=== PATIENT | male | born 1990 | race Caucasian/White ===

== ENCOUNTER 2017-04-22 20:43 | Emergency (ER) | payer MEDICARE ==
[~2017-04-22] VITALS: Ht 180.3 cm; Wt 90.9 kg
[2017-04-22] MEDS ORDERED: LORazepam 1MG TABLET ONE (21:20)
[2017-04-22 21:22] LABS: HEMATOCRIT 46.2 % (39.2-51.8); HEMOGLOBIN 15.8 g/dL (13.7-18.0); WHITE BLOOD COUNT 11.6 x10^3/uL (3.4-10)
[2017-04-22] MEDS ORDERED: SODIUM CHLORIDE FLUSH 10ML SYR IVF ONE (21:30)
[2017-04-22] MEDS ORDERED: LORazepam 1MG TABLET PO ONE (21:30)
[2017-04-22] MEDS ORDERED: PHENYTOIN SODIUM 1,000 MG in SODIUM CHLORIDE 0.9% 100 ML IVPB ONE (21:30)
[2017-04-22] MEDS ORDERED: FILTER 0.22 MICRON IV ONE (21:30)
[2017-04-22 21:31] LABS: BLOOD UREA NITROGEN 9 mg/dL (7-18)
[2017-04-22 21:35] LABS: ASPARTATE AMINO TRANSFERASE 23 U/L (15-37)
[2017-04-22] MEDS ORDERED: PHENYTOIN 125 MG/5 ML ORAL SUSP PO ONE (23:30)
[2017-04-22 23:50] VITALS: BP 136/84
== END 2017-04-23 00:04 | disposition home or self-care (01) ==
LOC: ED 21:44
DX: G40.319 Generalized idiopathic epilepsy and epileptic syndromes, intractable, without status epilepticus (principal); Z72.89 Other problems related to lifestyle
CPT/HCPCS: 36415; 80053; 80307; 85025; 96365; 96366; 99285; J1165

== ENCOUNTER 2017-04-26 22:05 | Emergency (ER) | payer MEDICARE, MEDICAID ==
[~2017-04-26] VITALS: Ht 180.3 cm; Wt 99.8 kg
[2017-04-26 22:30] VITALS: BP 107/66
== END 2017-04-26 22:57 | disposition home or self-care (01) ==
LOC: ED 22:37
DX: R07.89 Other chest pain (principal); F17.200 Nicotine dependence, unspecified, uncomplicated; Z88.6 Allergy status to analgesic agent; Z88.0 Allergy status to penicillin; Z88.8 Allergy status to other drugs, medicaments and biological substances
CPT/HCPCS: 99284

== ENCOUNTER 2017-04-29 17:17 | Emergency (ER) | payer MEDICARE, MEDICAID ==
[~2017-04-29] VITALS: Ht 175.3 cm; Wt 81.0 kg
[2017-04-29 17:23] VITALS: BP 107/74
[2017-04-29] MEDS ORDERED: IBUP-1223 PO (17:28)
[2017-04-29] MEDS ORDERED: PHEN100C PO (17:28)
== END 2017-04-29 17:45 | disposition left against medical advice (07) ==
LOC: ED 17:42
DX: R56.9 Unspecified convulsions (principal); F17.200 Nicotine dependence, unspecified, uncomplicated
CPT/HCPCS: 99283

== ENCOUNTER 2017-05-15 20:29 | Emergency (ER) | payer MEDICARE, MEDICAID ==
[~2017-05-15] VITALS: Ht 182.9 cm; Wt 78.1 kg
[~2017-05-15 20:29] MED LIST: IBUP-1223 PO; PHEN100C PO
[2017-05-15] MEDS ORDERED: ONDANSETRON ODT 4 MG PO ONE (21:00)
[2017-05-15 21:52] VITALS: BP 118/80
== END 2017-05-15 21:54 | disposition home or self-care (01) ==
LOC: ED 21:46
DX: R11.2 Nausea with vomiting, unspecified (principal); F17.200 Nicotine dependence, unspecified, uncomplicated; Z88.0 Allergy status to penicillin; Z88.6 Allergy status to analgesic agent; Z88.8 Allergy status to other drugs, medicaments and biological substances
CPT/HCPCS: 74022; 93005; 99284

== ENCOUNTER 2017-05-16 17:16 | Emergency (ER) | payer MEDICARE, MEDICAID ==
[~2017-05-16] VITALS: Ht 182.9 cm; Wt 77.4 kg
[2017-05-16 17:18] VITALS: BP 125/82
[2017-05-16] MEDS ORDERED: LORazepam 1MG TABLET PO ONE (18:00)
== END 2017-05-16 20:06 | disposition left against medical advice (07) ==
LOC: ED 20:00
DX: F32.9 Major depressive disorder, single episode, unspecified (principal); F43.10 Post-traumatic stress disorder, unspecified; Z80.0 Family history of malignant neoplasm of digestive organs; Z88.1 Allergy status to other antibiotic agents; Z88.6 Allergy status to analgesic agent; Z88.8 Allergy status to other drugs, medicaments and biological substances
CPT/HCPCS: 99284

== ENCOUNTER 2017-05-23 01:45 | Emergency (ER) | payer MEDICARE, MEDICAID ==
[~2017-05-23] VITALS: Ht 175.3 cm; Wt 77.6 kg
[2017-05-23 01:47] VITALS: BP 111/75
== END 2017-05-23 02:35 | disposition home or self-care (01) ==
LOC: ED 02:30
DX: T50.995A Adverse effect of other drugs, medicaments and biological substances, initial encounter (principal); Y92.89 Other specified places as the place of occurrence of the external cause
CPT/HCPCS: 93005; 99283

== ENCOUNTER 2017-06-01 04:02 | Emergency (ER) | payer MEDICARE, MEDICAID ==
[~2017-06-01] VITALS: Ht 182.9 cm; Wt 77.0 kg
[2017-06-01 05:29] LABS: HEMOGLOBIN 16.4 g/dL (13.7-18.0); WHITE BLOOD COUNT 8.8 x10^3/uL (3.4-10)
[2017-06-01 05:38] LABS: BLOOD UREA NITROGEN 11 mg/dL (7-18)
[2017-06-01 06:32] VITALS: BP 132/84
== END 2017-06-01 06:43 | disposition home or self-care (01) ==
LOC: ED 06:25
DX: S00.93XA Contusion of unspecified part of head, initial encounter (principal); S20.212A Contusion of left front wall of thorax, initial encounter; Y09 Assault by unspecified means; Y93.89 Activity, other specified; Y92.009 Unspecified place in unspecified non-institutional (private) residence as the place of occurrence of the external cause; Y99.9 Unspecified external cause status
CPT/HCPCS: 36415; 70450; 71020; 80048; 82040; 85025; 93005; 99285

== ENCOUNTER 2017-06-01 11:10 | Emergency (ER) | payer MEDICARE, MEDICAID ==
[~2017-06-01] VITALS: Ht 180.3 cm; Wt 76.2 kg
[2017-06-01 11:16] VITALS: BP 116/78
== END 2017-06-01 13:08 | disposition home or self-care (01) ==
LOC: ED 12:45
DX: R53.1 Weakness (principal); Z88.0 Allergy status to penicillin; Z88.8 Allergy status to other drugs, medicaments and biological substances
CPT/HCPCS: 99281

== ENCOUNTER 2017-09-13 01:11 | Emergency (ER) | payer MEDICAID, MEDICARE, OTHER ==
[~2017-09-13] VITALS: Ht 177.8 cm; Wt 75.4 kg
[2017-09-13 01:13] VITALS: BP 108/75
[2017-09-13] MEDS ORDERED: KETOROLAC 30 MG/1 ML IM ONE (02:30)
[2017-09-13] MEDS ORDERED: KETOROLAC 30 MG/1 ML ONE (02:50)
== END 2017-09-13 03:24 | disposition home or self-care (01) ==
LOC: ED 03:18
DX: R07.89 Other chest pain (principal)
CPT/HCPCS: 71101; 96372; 99284; J1885

== ENCOUNTER 2018-06-02 11:09 | Observation (INO) | payer MEDICARE, MEDICAID ==
[~2018-06-02] VITALS: Ht 180.3 cm; Wt 79.4 kg
[2018-06-02] MEDS ORDERED: ASPI-496 PO (11:32)
[2018-06-02] MEDS ORDERED: DILT120T PO (11:32)
[2018-06-02 12:01] LABS: BASOPHILS # (AUTO) 0.06 x10^3/uL (0-0.1); BASOPHILS % (AUTO) 1 % (0-1); EOSINOPHILS # (AUTO) 0.21 x10^3/uL (0-0.4); EOSINOPHILS % (AUTO) 2 % (1-7); LYMPHOCYTES # (AUTO) 2.52 x10^3/uL (1-3.4); LYMPHOCYTES % (AUTO) 23 % (22-44); MD NO; MEAN CORPUSCULAR HEMOGLOBIN 30.5 pg (27.5-34.5); MEAN CORPUSCULAR HGB CONC 34.3 g/dL (33.2-36.2); MEAN CORPUSCULAR VOLUME 88.9 fL (81-97); MEAN PLATELET VOLUME 7.4 fL (7.4-10.4); MONOCYTES # (AUTO) 0.92 x10^3/uL (0.2-0.8); MONOCYTES % (AUTO) 9 % (2-9); NEUTROPHILS # (AUTO) 7.12 x10^3/uL (1.8-6.8); NEUTROPHILS % (AUTO) 66 % (42-75); PLATELET COUNT 327 x10^3/uL (130-400); RED BLOOD COUNT 4.92 x10^6/uL (4.38-5.82); RED CELL DISTRIBUTION WIDTH 13.2 % (9.4-14.8)
[2018-06-02 12:13] LABS: ALBUMIN 4.2 g/dL (3.4-5.0); ANION GAP 11 mmol/L (5-15); CHLORIDE 106 mmol/L (98-107); CREATININE 0.83 mg/dL (0.7-1.3)
[2018-06-02 12:17] LABS: TROPONIN I < 0.015 ng/mL (0.000-0.045)
[2018-06-02] MEDS ORDERED: SODIUM CHLORIDE FLUSH 10ML SYR IVF PRN (14:30)
[2018-06-02] MEDS ORDERED: ONDANSETRON ODT 4 MG PO PRN (15:00)
[2018-06-02] MEDS ORDERED: POLYETHYLENE GLYCOL 17 GM PACKET PO PRN (15:00)
[2018-06-02] MEDS ORDERED: ENALAPRILAT 1.25 MG/ML, 2ML IVPush PRN (15:00)
[2018-06-02] MEDS ORDERED: ONDANSETRON 2MG/ML, 2ML IVPush PRN (15:00)
[2018-06-02] MEDS ORDERED: NICOTINE 7 MG/24 HR PATCH.TD24 TD SCH (15:00)
[2018-06-02 15:33] VITALS: BP 113/72
[2018-06-02] MEDS: SODIUM CHLORIDE 0.9% 1,000 ML IV SCH ×2 (16:18→20:39)
[2018-06-02 18:26] LABS: TROPONIN I < 0.015 ng/mL (0.000-0.045)
[2018-06-02 20:40] VITALS: BP 111/60
[2018-06-03 01:07] LABS: TROPONIN I < 0.015 ng/mL (0.000-0.045)
[2018-06-03 02:36] VITALS: BP 121/73
[2018-06-03 05:03] LABS: BASOPHILS # (AUTO) 0.05 x10^3/uL (0-0.1); BASOPHILS % (AUTO) 1 % (0-1); EOSINOPHILS % (AUTO) 3 % (1-7); LYMPHOCYTES # (AUTO) 3.07 x10^3/uL (1-3.4); LYMPHOCYTES % (AUTO) 36 % (22-44); MD NO; MEAN CORPUSCULAR HEMOGLOBIN 30.8 pg (27.5-34.5); MEAN CORPUSCULAR HGB CONC 34.5 g/dL (33.2-36.2); MEAN CORPUSCULAR VOLUME 89.1 fL (81-97); MEAN PLATELET VOLUME 7.6 fL (7.4-10.4); MONOCYTES # (AUTO) 0.93 x10^3/uL (0.2-0.8); MONOCYTES % (AUTO) 11 % (2-9); NEUTROPHILS # (AUTO) 4.29 x10^3/uL (1.8-6.8); NEUTROPHILS % (AUTO) 50 % (42-75); PLATELET COUNT 296 x10^3/uL (130-400); RED BLOOD COUNT 4.98 x10^6/uL (4.38-5.82); RED CELL DISTRIBUTION WIDTH 13.4 % (9.4-14.8)
[2018-06-03 05:13] LABS: CHLORIDE 110 mmol/L (98-107)
[2018-06-03 05:27] LABS: ANION GAP 8 mmol/L (5-15); CALCIUM 8.4 mg/dL (8.5-10.1); CREATININE 0.91 mg/dL (0.7-1.3)
[2018-06-03 05:28] LABS: ALANINE AMINOTRANSFERASE 29 U/L (12-78); ALBUMIN 3.8 g/dL (3.4-5.0); ALKALINE PHOSPHATASE 69 U/L (45-117); BILIRUBIN,TOTAL 0.5 mg/dL (0.2-1.0); TOTAL PROTEIN 6.7 g/dL (6.4-8.2)
[2018-06-03] MEDS ORDERED: ASPIRIN 81 MG TABLET EC PO SCH (06:00)
[2018-06-03 07:57] VITALS: BP 97/58
[2018-06-03] MEDS: SODIUM CHLORIDE 0.9% 1,000 ML IV SCH (08:35)
[2018-06-03] MEDS ORDERED: SENNA/DOCUSATE TABLET PO SCH (09:00)
[2018-06-03] MEDS ORDERED: DILTIAZEM 120 MG CAP.ER.24H PO SCH (09:00)
[2018-06-04] MEDS ORDERED: DILTIAZEM 120 MG CAP.ER.24H PO SCH (09:00)
== END 2018-06-03 11:40 | disposition left against medical advice (07) ==
LOC: ED 14:12 → INTOOBSV 14:13 → EDIP 14:13 → 5SO 15:25
PROVIDERS: ADMIT Hospitalist; ATTEND Internal Medicine
DX: R55 Syncope and collapse (principal); I10 Essential (primary) hypertension; I49.5 Sick sinus syndrome; D72.829 Elevated white blood cell count, unspecified; F17.200 Nicotine dependence, unspecified, uncomplicated; Z82.49 Family history of ischemic heart disease and other diseases of the circulatory system; Z83.3 Family history of diabetes mellitus; Z95.0 Presence of cardiac pacemaker
CPT/HCPCS: 36415; 71045; 80048; 80053; 82040; 83735; 84100; 84439; 84443; 84484; 85025; 87040; 93005; 93306; 96360; 96361; 99285; G0378; J7030